=== PATIENT | male | born 1945 | race Caucasian/White ===

== ENCOUNTER 2023-02-11 11:16 | Day surgery (SDC) | payer MEDICARE ==
[2023-02-09 11:43] VITALS: BMI 17.6
[2023-02-11] MEDS ORDERED: Midazolam HCl 2 mg/2 ml Vial ONE (12:57)
[2023-02-11] MEDS ORDERED: fentaNYL PF 100 MCG/2 ML SYRINGE ONE (12:58)
[2023-02-11] MEDS ORDERED: Ketamine 50 MG/ML (10ML VIAL) ONE (13:03)
[2023-02-11 13:05] LABS: Anion Gap 13 mmol/L (10-20); BUN (Urea Nitrogen) 21 mg/dL (8.4-25.7); Calc. Creatinine Clearance 75 mL/min (70-130); Calcium 9.8 mg/dL (7.8-10.44); Carbon Dioxide 25 mmol/L (23-31); Chloride 106 mmol/L (98-107); Estimated GFR 96; Glucose 80 mg/dL (83-110); Potassium 4.2 mmol/L (3.5-5.1); Sodium 140 mmol/L (136-145)
== END 2023-02-11 14:10 | disposition home or self-care (01) ==
LOC: SDC/OP 11:16
PROVIDERS: ATTEND Neurological Surgery
DX: M48.02 Spinal stenosis, cervical region (principal)
CPT/HCPCS: 80048; J2250

== ENCOUNTER 2023-09-14 07:11 | Inpatient (IN) | payer MEDICARE ==
[2023-09-14] MEDS ORDERED: Ondansetron PF 4 MG/2 ML Vial ONE (08:28)
[2023-09-14] MEDS ORDERED: Morphine 4 MG/ML VIAL ONE (08:28)
[2023-09-14 08:35] LABS: #Neutrophils 10.3 thou/uL (1.40-6.50); %Basophils 0.1 % (0.0-1.0); %Lymphocytes 5.2 % (21.0-51.0); %Monocytes 8.4 % (0.0-10.0); %Neutrophils 85.9 % (42.0-75.0); Hematocrit 41.2 % (42.0-52.0); Hemoglobin 13.8 g/dL (14.0-18.0); Mean Corpuscular HGB CONC 33.5 g/dL (32.0-36.0); Mean Corpuscular Hemoglobin 28.8 pg (27.0-31.0); Mean Corpuscular Volume 85.8 fl (78.0-98.0); Mean Platelet Volume 9.1 fL (7.4-10.4); Platelet Count 303 10x3/uL (130-400); RBC Distribution Width 13.6 % (11.5-14.5)
[2023-09-14 09:00] LABS: ALT (SGPT) 15 U/L (8-55); AST (SGOT) 19 U/L (5-34); Alkaline Phosphatase 85 U/L (40-110); Anion Gap 15 mmol/L (10-20); BUN (Urea Nitrogen) 54 mg/dL (8.4-25.7); Calc. Creatinine Clearance 0 mL/min (70-130); Calcium 9.7 mg/dL (7.8-10.44); Carbon Dioxide 23 mmol/L (23-31); Chloride 105 mmol/L (98-107); Estimated GFR 22; Globulin 3.1 g/dL (2.4-3.5); Glucose 126 mg/dL (83-110); Lipase Less than 4 U/L (8-78); Potassium 4.6 mmol/L (3.5-5.1); Protein, Total 7.1 g/dL (5.8-8.1); Sodium 138 mmol/L (136-145)
[2023-09-14 09:05] LABS: Troponin I 0.021 ng/mL (< 0.028)
[2023-09-14] MEDS ORDERED: fentaNYL 50 mcg/mL 1 mL Vial ONE (09:15)
[2023-09-14 09:20] LABS: Bacteria/HPF None Seen HPF (None Seen); Bilirubin Negative (Negative); Blood, Urine 1+ (Negative); CAUTI Indications for Culture Pelvic or flank pain; Clarity Clear (Clear); Glucose, Urine (Dipstick) Normal (Negative); Ketone, Urine Negative (Negative); Leukocyte 25 Leu/uL (Negative); Nitrite Negative (Negative); Protein, Urine (Dipstick) Negative (Neg-Trace); RBC/HPF Greater than 50 HPF (0-3); Specific Gravity, Urine 1.015 (1.002-1.036); Squamous Epithelial None Seen HPF (0-3); Urobilinogen Normal mg/dL (Less than 2); WBC/HPF 0-3 HPF (0-3); pH, Urine 5.5 (5.0-9.0)
[2023-09-14 09:22] LABS: Urine Culture Reflex No No
[2023-09-14] MEDS ORDERED: Dextrose 50% Abboject 50 ML SYRINGE SLOW IVP PRN (11:22)
[2023-09-14] MEDS ORDERED: Ondansetron ODT 4 MG TAB PO PRN (11:22)
[2023-09-14] MEDS ORDERED: Ondansetron PF 4 MG/2 ML Vial IVP PRN (11:22)
[2023-09-14] MEDS ORDERED: Glucagon 1 MG/ML KIT IM PRN (11:22)
[2023-09-14] MEDS ORDERED: Dextrose 5% in Water 1,000 ML IV PRN (11:22)
[2023-09-14] MEDS ORDERED: Electrolyte Replacement Protocol 1 EACH FS SCH (11:45)
[2023-09-14] MEDS: Sodium Chloride 0.9% 1,000 ML IV SCH (12:23)
[2023-09-14 15:41] LABS: Hematocrit 36.6 % (42.0-52.0); Hemoglobin 11.4 g/dL (14.0-18.0)
[2023-09-14 21:37] LABS: Hematocrit 36.5 % (42.0-52.0); Hemoglobin 11.9 g/dL (14.0-18.0)
[2023-09-14 23:52] VITALS: BMI 15.5
[2023-09-15 02:49] LABS: #Eosinphils 0.2 thou/uL (0.0-0.7); #Monocytes 1.1 thou/uL (0.11-0.59); #Neutrophils 5.5 thou/uL (1.40-6.50); %Basophils 0.5 % (0.0-1.0); %Eosinophils 2.2 % (0.0-10.0); %Lymphocytes 18.3 % (21.0-51.0); %Monocytes 12.7 % (0.0-10.0); %Neutrophils 65.9 % (42.0-75.0); Hematocrit 34.7 % (42.0-52.0); Hemoglobin 11.5 g/dL (14.0-18.0); Mean Corpuscular HGB CONC 33.1 g/dL (32.0-36.0); Mean Corpuscular Volume 87.6 fl (78.0-98.0); Mean Platelet Volume 9.1 fL (7.4-10.4); Platelet Count 233 10x3/uL (130-400); RBC Distribution Width 13.6 % (11.5-14.5); Red Blood Cell (RBC) Count 3.96 mill/uL (4.70-6.10); White Blood Cell (WBC) Count 8.4 10x3/uL (4.8-10.8)
[2023-09-15 03:38] LABS: ALT (SGPT) 12 U/L (8-55); AST (SGOT) 15 U/L (5-34); Albumin 3.1 g/dL (3.4-4.8); Alkaline Phosphatase 62 U/L (40-110); Anion Gap 7 mmol/L (10-20); BUN (Urea Nitrogen) 27 mg/dL (8.4-25.7); Bilirubin, Total 0.7 mg/dL (0.2-1.2); Calc. Creatinine Clearance 57 mL/min (70-130); Calcium 8.5 mg/dL (7.8-10.44); Carbon Dioxide 28 mmol/L (23-31); Chloride 111 mmol/L (98-107); Estimated GFR 92; Globulin 2.4 g/dL (2.4-3.5); Glucose 85 mg/dL (83-110); Potassium 4.2 mmol/L (3.5-5.1); Protein, Total 5.5 g/dL (5.8-8.1); Sodium 142 mmol/L (136-145)
[2023-09-15] MEDS: Acetaminophen/Codeine 30-300mg Tablet PO PRN (04:02)
[2023-09-15 16:49] LABS: Hemoglobin 11.5 g/dL (14.0-18.0)
[2023-09-15] MEDS: Tamsulosin HCl 0.4 MG CAP PO SCH (20:01)
[2023-09-16] MEDS: Acetaminophen 325 MG TAB PO PRN (05:27)
[2023-09-16 05:51] LABS: #Basophils 0.1 thou/uL (0.0-0.2); #Eosinphils 0.1 thou/uL (0.0-0.7); #Monocytes 0.8 thou/uL (0.11-0.59); #Neutrophils 4.7 thou/uL (1.40-6.50); %Basophils 0.7 % (0.0-1.0); %Eosinophils 1.5 % (0.0-10.0); %Lymphocytes 21.9 % (21.0-51.0); %Neutrophils 64.6 % (42.0-75.0); Hematocrit 42.3 % (42.0-52.0); Hemoglobin 13.7 g/dL (14.0-18.0); Mean Corpuscular HGB CONC 32.4 g/dL (32.0-36.0); Mean Corpuscular Hemoglobin 28.2 pg (27.0-31.0); Mean Platelet Volume 9.4 fL (7.4-10.4); Platelet Count 296 10x3/uL (130-400); RBC Distribution Width 13.2 % (11.5-14.5); Red Blood Cell (RBC) Count 4.86 mill/uL (4.70-6.10); White Blood Cell (WBC) Count 7.2 10x3/uL (4.8-10.8)
[2023-09-16 06:13] LABS: ALT (SGPT) 12 U/L (8-55); AST (SGOT) 16 U/L (5-34); Albumin 3.6 g/dL (3.4-4.8); Alkaline Phosphatase 74 U/L (40-110); Anion Gap 14 mmol/L (10-20); BUN (Urea Nitrogen) 17 mg/dL (8.4-25.7); Bilirubin, Total 0.8 mg/dL (0.2-1.2); Calc. Creatinine Clearance 65 mL/min (70-130); Carbon Dioxide 24 mmol/L (23-31); Chloride 104 mmol/L (98-107); Estimated GFR 95; Globulin 3.1 g/dL (2.4-3.5); Glucose 80 mg/dL (83-110); Potassium 3.7 mmol/L (3.5-5.1); Protein, Total 6.7 g/dL (5.8-8.1); Sodium 138 mmol/L (136-145)
[2023-09-16] MEDS: Polyethylene Glycol 3350 17 GM Packet PO PRN (11:37)
[2023-09-16] MEDS: Docusate 100 MG CAP PO PRN (21:43)
[2023-09-16] MEDS: Bisacodyl 10 MG SUPP PR PRN (21:43)
[2023-09-17] MEDS: Lactulose 20 GM (30 mL) UDCUP PO SCH (11:02)
[2023-09-17 15:52] LABS: #Eosinphils 0.1 thou/uL (0.0-0.7); #Monocytes 0.7 thou/uL (0.11-0.59); #Neutrophils 3.7 thou/uL (1.40-6.50); %Basophils 0.5 % (0.0-1.0); %Lymphocytes 18.9 % (21.0-51.0); %Monocytes 12.1 % (0.0-10.0); %Neutrophils 66.1 % (42.0-75.0); Hematocrit 40.2 % (42.0-52.0); Hemoglobin 13.1 g/dL (14.0-18.0); Mean Corpuscular HGB CONC 32.6 g/dL (32.0-36.0); Mean Corpuscular Hemoglobin 28.4 pg (27.0-31.0); Mean Corpuscular Volume 87.2 fl (78.0-98.0); Mean Platelet Volume 9.3 fL (7.4-10.4); Platelet Count 307 10x3/uL (130-400); RBC Distribution Width 13.1 % (11.5-14.5); Red Blood Cell (RBC) Count 4.61 mill/uL (4.70-6.10); White Blood Cell (WBC) Count 5.6 10x3/uL (4.8-10.8)
[2023-09-17 16:15] LABS: ALT (SGPT) 12 U/L (8-55); AST (SGOT) 13 U/L (5-34); Albumin 3.2 g/dL (3.4-4.8); Alkaline Phosphatase 67 U/L (40-110); Anion Gap 12 mmol/L (10-20); BUN (Urea Nitrogen) 12 mg/dL (8.4-25.7); Bilirubin, Total 0.5 mg/dL (0.2-1.2); Calc. Creatinine Clearance 57 mL/min (70-130); Calcium 8.5 mg/dL (7.8-10.44); Carbon Dioxide 26 mmol/L (23-31); Chloride 104 mmol/L (98-107); Estimated GFR 92; Globulin 2.9 g/dL (2.4-3.5); Glucose 94 mg/dL (83-110); Potassium 4.1 mmol/L (3.5-5.1); Protein, Total 6.1 g/dL (5.8-8.1); Sodium 138 mmol/L (136-145)
[2023-09-17] MEDS: Senokot S 8.6-50 MG TAB PO SCH (20:44)
[2023-09-18] MEDS: Polyethylene Glycol 3350 17 GM Packet PO SCH (11:04)
[2023-09-19] MEDS: Multivit, Therapeutic 1 TAB PO SCH (10:09)
[2023-09-19] MEDS: Meclizine HCl 25 MG TAB PO SCH (10:09)
[2023-09-19 16:52] VITALS: BP 106/75; TEMP 99.2
== END 2023-09-19 17:34 | DRG 815 ==
LOC: ERS 07:11 → ERHOLD 11:26 → 2NO 20:31 → SJJU 09-18 16:14
PROVIDERS: ADMIT Surgery; ATTEND Surgery
PROC: 0T9B70Z Drainage of Bladder with Drainage Device, Via Natural or Artificial Opening (ICD-10-PCS; principal; 2023-09-14)
DX: S36.031A Moderate laceration of spleen, initial encounter (principal); E44.0 Moderate protein-calorie malnutrition; G83.4 Cauda equina syndrome; N17.9 Acute kidney failure, unspecified; R64 Cachexia; Z68.1 Body mass index [BMI] 19.9 or less, adult; W18.30XA Fall on same level, unspecified, initial encounter; F17.210 Nicotine dependence, cigarettes, uncomplicated; M06.9 Rheumatoid arthritis, unspecified; D64.9 Anemia, unspecified; Z66 Do not resuscitate; M40.204 Unspecified kyphosis, thoracic region; K59.00 Constipation, unspecified; R33.8 Other retention of urine; N40.1 Benign prostatic hyperplasia with lower urinary tract symptoms; R53.81 Other malaise
CPT/HCPCS: 36415; 51702; 71045; 71250; 74177; 80053; 81001; 83690; 84484; 85025; 93005; 94760; 96374; 96375; J2270; J2405; J3010; J7050

== ENCOUNTER 2023-10-25 23:22 | Emergency (ER) | payer MEDICARE ==
[2023-10-26 00:02] LABS: #Neutrophils 10.6 thou/uL (1.40-6.50); %Basophils 0.2 % (0.0-1.0); %Eosinophils 0.1 % (0.0-10.0); %Lymphocytes 7.1 % (21.0-51.0); %Monocytes 8.2 % (0.0-10.0); %Neutrophils 83.4 % (42.0-75.0); Hematocrit 34.4 % (42.0-52.0); Hemoglobin 11.3 g/dL (14.0-18.0); Mean Corpuscular HGB CONC 32.8 g/dL (32.0-36.0); Mean Corpuscular Hemoglobin 28.5 pg (27.0-31.0); Mean Corpuscular Volume 86.6 fl (78.0-98.0); Mean Platelet Volume 8.6 fL (7.4-10.4); Platelet Count 401 10x3/uL (130-400); RBC Distribution Width 13.5 % (11.5-14.5); Red Blood Cell (RBC) Count 3.97 mill/uL (4.70-6.10); White Blood Cell (WBC) Count 12.7 10x3/uL (4.8-10.8)
[2023-10-26 00:17] LABS: ALT (SGPT) 14 U/L (8-55); AST (SGOT) 15 U/L (5-34); Albumin 3.6 g/dL (3.4-4.8); Alkaline Phosphatase 105 U/L (40-110); Anion Gap 16 mmol/L (10-20); BUN (Urea Nitrogen) 18 mg/dL (8.4-25.7); Bilirubin, Total 0.5 mg/dL (0.2-1.2); Calc. Creatinine Clearance 0 mL/min (70-130); Calcium 9.6 mg/dL (7.8-10.44); Carbon Dioxide 24 mmol/L (23-31); Chloride 102 mmol/L (98-107); Estimated GFR 89; Globulin 3.5 g/dL (2.4-3.5); Glucose 111 mg/dL (83-110); Potassium 4.5 mmol/L (3.5-5.1); Protein, Total 7.1 g/dL (5.8-8.1); Sodium 137 mmol/L (136-145)
[2023-10-26 00:38] LABS: Magnesium 2.3 mg/dL (1.6-2.6)
[2023-10-26 00:42] LABS: Troponin I Less than 0.010 ng/mL (< 0.028)
[2023-10-26 01:33] LABS: Bilirubin Negative (Negative); Blood, Urine 2+ (Negative); CAUTI Indications for Culture Pelvic or flank pain; Clarity Turbid (Clear); Glucose, Urine (Dipstick) Normal (Negative); Ketone, Urine Negative (Negative); Leukocyte 250 Leu/uL (Negative); Nitrite Negative (Negative); Protein, Urine (Dipstick) 200 mg/dL (Neg-Trace); RBC/HPF Greater than 50 HPF (0-3); Squamous Epithelial 0-3 HPF (0-3); WBC/HPF Greater than 50 HPF (0-3); Yeast-Budding 1+ HPF (None Seen); pH, Urine 5.5 (5.0-9.0)
[2023-10-26 01:34] LABS: Bacteria/HPF 1+ HPF (None Seen)
[2023-10-26 01:35] LABS: Urine Culture Reflex Yes Yes
[2023-10-26] MEDS ORDERED: LevoFLOXacin 500 MG TAB ONE (02:32)
== END 2023-10-26 02:30 | disposition home or self-care (01) ==
LOC: ERS 23:22
DX: N45.1 Epididymitis (principal); F17.210 Nicotine dependence, cigarettes, uncomplicated
CPT/HCPCS: 36415; 76870; 80053; 81001; 83605; 83735; 83880; 84484; 85025; 87086; 93976

== ENCOUNTER 2024-01-05 08:10 | Day surgery (SDC) | payer MEDICARE ==
[2024-01-05 08:58] LABS: #Basophils 0.05 10x3/uL (0.0-0.2); %Basophils 0.8 % (0.0-1.0); %Eosinophils 1.8 % (0.0-10.0); %Lymphocytes 27.9 % (21.0-51.0); %Monocytes 8.1 % (0.0-10.0); %Neutrophils 61.1 % (42.0-75.0); Hematocrit 42.7 % (42.0-52.0); Hemoglobin 13.7 g/dL (14.0-18.0); Mean Corpuscular HGB CONC 32.1 g/dL (32.0-36.0); Mean Corpuscular Hemoglobin 27.8 pg (27.0-31.0); Mean Corpuscular Volume 86.8 fL (78.0-98.0); Mean Platelet Volume 8.4 fL (7.4-10.4); Platelet Count 396 10x3/uL (130-400); RBC Distribution Width 13.6 % (11.5-14.5); Red Blood Cell (RBC) Count 4.92 mill/uL (4.70-6.10)
[2024-01-05 09:13] LABS: Prothrombin Time 12.7 sec (12.0-14.7)
[2024-01-05 09:14] LABS: PTT 29.4 sec (22.9-36.1)
[2024-01-05 09:26] VITALS: BP 108/66; TEMP 97.2
[2024-01-05] MEDS ORDERED: Sodium Bicarbonate 2.5 MEQ/5 ML SDV ONE (09:27)
[2024-01-05] MEDS ORDERED: Lidocaine 1% PF 5 ML VIAL ONE (09:27)
[2024-01-05] MEDS ORDERED: Midazolam HCl 2 mg/2 ml Vial ONE (09:28)
[2024-01-05] MEDS ORDERED: fentaNYL 50 mcg/mL 1 mL Vial ONE (09:28)
[2024-01-05] MEDS ORDERED: LevoFLOXacin 250 mg/D5W 250 MG in Premix 1 BAG IVPB SCH (09:45)
[2024-01-05] MEDS ORDERED: Lidocaine 2% 6 ML (Jelly) SYR ONE ×2 (10:47→11:00)
== END 2024-01-05 13:46 | disposition home or self-care (01) ==
LOC: CT 08:10
PROVIDERS: ATTEND Urology
PROC: 0T9B70Z Drainage of Bladder with Drainage Device, Via Natural or Artificial Opening (ICD-10-PCS; principal; 2024-01-05)
DX: N40.1 Benign prostatic hyperplasia with lower urinary tract symptoms (principal); R33.9 Retention of urine, unspecified; R35.0 Frequency of micturition; E78.5 Hyperlipidemia, unspecified; R97.20 Elevated prostate specific antigen [PSA]; R53.81 Other malaise; Z79.899 Other long term (current) drug therapy; Z98.890 Other specified postprocedural states
CPT/HCPCS: 51102; 77012 ×2; 85025; 85610; 85730; J3010; J1956; J2250